=== PATIENT | male | born 1965 | race American Indian/Alaskan Native ===

== ENCOUNTER 2018-10-25 09:19 | Emergency (ER) | payer MEDICAID ==
[~2018-10-25] VITALS: Ht 160 cm; Wt 85.3 kg
[2018-10-25 09:20] VITALS: BP_SYST 141
[2018-10-25] MEDS ORDERED: TETRACAINE (PONTOCAINE) TOPICAL 30 ML SOLUTION TP ONE (09:20)
[2018-10-25 11:10] VITALS: BP_SYST 141
== END 2018-10-25 11:10 | disposition home or self-care (01) ==
LOC: SED 09:19
DX: T15.01XA Foreign body in cornea, right eye, initial encounter (principal); X58.XXXA Exposure to other specified factors, initial encounter; Y93.89 Activity, other specified; Y92.89 Other specified places as the place of occurrence of the external cause; Y99.8 Other external cause status
CPT/HCPCS: 99284